=== PATIENT | female | born 2000 | race Two or more races ===

== ENCOUNTER → 2024-05-05 | Emergency (ER) | payer OTHER ==
[~2024-05-05] VITALS: Ht 170.2 cm; Wt 68.0 kg
[~2024-05-05] MED LIST: CLEOCIN HCL150 MG PO
== END | disposition home or self-care (01) ==
LOC: ER 16:02
DX: R53.81 Other malaise (principal); N61.1 Abscess of the breast and nipple

== ENCOUNTER 2024-06-04 05:52 | Day surgery (SDC) | payer OTHER ==
[2024-06-04] MEDS ORDERED: CEFAZOLIN SODIUM 1,000 MG VIAL ONE (06:19)
[2024-06-04] MEDS ORDERED: CHLORHEXIDINE GLUCONATE 120 ML BOTTLE TOP ONE (07:33)
[2024-06-04] MEDS ORDERED: LIDOCAINE HCL 1% 20 ML VIAL IJ ONE (07:54)
[2024-06-04] MEDS ORDERED: HYDROGEN PEROXIDE 473 ML BOTTLE TOP ONE (07:56)
[2024-06-04] MEDS ORDERED: CELEBREX200MG PO (09:34)
== END 2024-06-04 10:40 | disposition home or self-care (01) ==
LOC: CIR.AMB 05:52
PROVIDERS: ATTEND Surgery
DX: N61.1 Abscess of the breast and nipple (principal)